=== PATIENT | male | born 1960 | race Caucasian/White ===

== ENCOUNTER → 2020-10-25 | Outpatient (CLI) | payer OTHER | LOC: US 13:30 | DX: N18.30 Chronic kidney disease, stage 3 unspecified (principal) ==

== ENCOUNTER → 2020-11-22 | Outpatient (CLI) | payer OTHER ==
[2020-11-23 10:13] LABS: CREATININE, URINE 163.3 mg/dL (Not Estab.)
== END ==
LOC: LAB 10:46
PROVIDERS: Internal Medicine Nephrology
DX: N18.30 Chronic kidney disease, stage 3 unspecified (principal)
CPT/HCPCS: 36415; 80048; 81001; 82043; 82570; 84156

== ENCOUNTER → 2021-01-09 | Outpatient (CLI) | payer OTHER | LOC: HEART 5 10:56 | DX: J45.909 Unspecified asthma, uncomplicated (principal) | CPT/HCPCS: 94010; 95012 ==

== ENCOUNTER → 2021-03-27 | Outpatient (CLI) | payer OTHER | LOC: RAD 14:51 | DX: M25.511 Pain in right shoulder (principal) | CPT/HCPCS: 73030 ==

== ENCOUNTER → 2021-06-22 | Outpatient (CLI) | payer OTHER ==
[2021-06-24 06:41] LABS: CREATININE, URINE 319.6 mg/dL (Not Estab.)
== END ==
LOC: LAB 15:13
PROVIDERS: Internal Medicine Nephrology
DX: I10 Essential (primary) hypertension (principal)
CPT/HCPCS: 36415; 80048; 82043; 82570

== ENCOUNTER → 2021-07-25 | Outpatient (CLI) | payer OTHER ==
[2021-07-25 17:09] LABS: BUN/CREATININE RATIO 13 (0-10)
== END ==
LOC: LAB 16:02
PROVIDERS: Internal Medicine Nephrology
DX: N17.9 Acute kidney failure, unspecified (principal)
CPT/HCPCS: 36415; 80048; 81001

== ENCOUNTER → 2021-09-19 | Outpatient (CLI) | payer MEDICARE ==
[2021-09-20 10:16] LABS: CREATININE, URINE 78.3 mg/dL (Not Estab.)
== END ==
LOC: LAB 12:32
PROVIDERS: Internal Medicine Nephrology
DX: N18.31 Chronic kidney disease, stage 3a (principal)
CPT/HCPCS: 36415; 80048; 82043; 82570

== ENCOUNTER → 2022-01-14 | Outpatient (CLI) | payer MEDICARE | LOC: LAB 15:54 | PROVIDERS: Internal Medicine Nephrology | DX: N18.31 Chronic kidney disease, stage 3a (principal) | CPT/HCPCS: 36415; 80048; 82043; 82570 ==